=== PATIENT | female | born 1955 | race Caucasian/White ===

== ENCOUNTER 2023-03-14 08:00 | Outpatient (CLI) | payer MEDICARE, OTHER | END 2023-03-14 23:59 | disposition home or self-care (01) | LOC: LAB.N 08:00 | PROVIDERS: ATTEND Physician Assistant Medical | DX: N30.00 Acute cystitis without hematuria (principal) | CPT/HCPCS: 87086; 87181 ==

== ENCOUNTER 2023-11-19 07:16 | Outpatient (CLI) | payer MEDICARE, OTHER ==
[2023-11-19 08:15] LABS: BASOPHILS % (AUTO) 0.3 %; EOSINOPHILS # (AUTO) 0.3 10^3/uL (0.0-0.7); HCT - HEMATOCRIT 42.9 % (37.0-47.0); HGB - HEMOGLOBIN 13.6 g/dL (12.0-16.0); LYMPHOCYTES # (AUTO) 2.4 10^3/uL (1.5-3.5); LYMPHOCYTES % (AUTO) 41.6 %; MEAN CORPUSCULAR HGB CONC 31.7 g/dL (32.0-36.0); MEAN CORPUSCULAR VOLUME 88.5 fL (81.0-99.0); MEAN PLATELET VOLUME 10.6 fL (7.9-10.8); MONOCYTES # (AUTO) 0.6 10^3/uL (0.0-1.0); MONOCYTES % (AUTO) 9.9 %; NEUTROPHILS # (AUTO) 2.5 10^3/uL (1.5-6.6); PLT - PLATELET COUNT 240 10^3/uL (130-450); RED BLOOD COUNT 4.85 10^6/uL (4.20-5.40); WHITE BLOOD COUNT 5.8 x10^3/uL (4.8-10.8)
[2023-11-19 08:51] LABS: THYROID STIMULATING HORMONE 2.98 uIU/mL (0.34-5.60)
[2023-11-19 08:58] LABS: FERRITIN 132.3 ng/mL (11.0-306.8)
[2023-11-19 09:07] LABS: % IRON SATURATION 33 % (20-50); ALBUMIN 4.3 g/dL (3.2-5.5); ALBUMIN/GLOBULIN RATIO 1.4 (1.0-2.2); ALKALINE PHOSPHATASE 90 IU/L (42-121); ALT ALANINE AMINOTRANSFERASE 16 IU/L (10-60); AST ASPARTATE AMINOTRANSFERASE 18 IU/L (10-42); BILIRUBIN,TOTAL 0.6 mg/dL (0.2-1.0); BUN - BLOOD UREA NITROGEN 22 mg/dL (6-20); CALCIUM 10.2 mg/dL (8.5-10.3); CARBON DIOXIDE - CO2 24 mmol/L (21-32); CHLORIDE 105 mmol/L (101-111); CHOL/HDL RATIO 4.4 (<4.4); CHOLESTEROL 228 mg/dL; CREATININE 0.8 mg/dL (0.6-1.3); CRP HIGH SENSITIVITY 1.25 mg/L; GFR - MDRD 72 (>89); GLUCOSE 115 mg/dL (74-104); HDL CHOLESTEROL 52 mg/dL; IRON 96 ug/dL (50-212); LDL CHOLESTEROL,CALCULATED 154 mg/dL; POTASSIUM 4.1 mmol/L (3.5-4.5); SODIUM 137 mmol/L (135-145); TOTAL IRON BINDING CAPACITY 294 ug/dL (250-450); TOTAL PROTEIN 7.3 g/dL (6.4-8.9); TRANSFERRIN 210 mg/dL (203-362); TRIGLYCERIDES 108 mg/dL (48-352); VLDL CHOLESTEROL 22 mg/dL
[2023-11-19 09:38] LABS: ESTIMATED AVERAGE GLUCOSE 114 mg/dL (70-100); HEMOGLOBIN A1c% 5.6 % (4.27-6.07)
[2023-11-20 04:09] LABS: APOLIPOPROTEIN B 106 mg/dL (<90)
[2023-11-20 05:12] LABS: VITAMIN D 25-HYDROXY 39.4 ng/mL (30.0-100.0)
[2023-11-20 08:10] LABS: DHEA-SULFATE 47.4 ug/dL (20.4-186.6)
[2023-11-20 17:09] LABS: THYROGLOBULIN ANTIBODY <1.0 IU/mL (0.0-0.9); THYROID PEROXIDASE (TPO) AB 11 IU/mL (0-34)
== END 2023-11-19 07:17 | disposition home or self-care (01) ==
LOC: LAB 07:16
DX: I10 Essential (primary) hypertension (principal); N95.9 Unspecified menopausal and perimenopausal disorder; R63.5 Abnormal weight gain; E88.810 Metabolic syndrome; M25.50 Pain in unspecified joint; E72.11 Homocystinuria; E78.00 Pure hypercholesterolemia, unspecified; G47.00 Insomnia, unspecified
CPT/HCPCS: 36415; 80053; 80061; 81599; 82172; 82306; 82533; 82627; 82728; 83036; 83090; 83525; 83540; 83721; 84402; 84403; 84439; 84443; 84466; 84481; 84482; 85025; 85651; 86038; 86141; 86376; 86800